=== PATIENT | male | born 1995 | race Caucasian/White ===

== ENCOUNTER 2023-03-06 06:12 | Inpatient (IN) | payer BC, OTHER ==
[~2023-03-06] VITALS: Ht 185.4 cm; Wt 65.4 kg
[2023-03-06 06:55] LABS: HEMATOCRIT 42.9 % (42.0-52.0); HEMOGLOBIN 14.9 g/dl (13.5-17.5); MEAN CORPUSCULAR HEMOGLOBIN 31.5 pg (27.0-33.0); MEAN CORPUSCULAR HGB CONC 34.7 g/dl (32.0-36.5); MEAN CORPUSCULAR VOLUME 90.7 fl (80.0-96.0); PLATELET COUNT, AUTOMATED 248 10^3/uL (150-450); RED BLOOD COUNT 4.73 10^6/uL (4.30-6.10); WHITE BLOOD COUNT 8.1 10^3/uL (4.0-10.0)
[2023-03-06 07:23] LABS: METHADONE URINE NEGATIVE (NEGATIVE); OPIATES URINE NEGATIVE (NEGATIVE); PHENCYCLIDINE URINE NEGATIVE (NEGATIVE)
[2023-03-06 07:24] LABS: BARBITURATES URINE NEGATIVE (NEGATIVE); BENZODIAZEPINES URINE NEGATIVE (NEGATIVE); COCAINE METABOLITE URINE NEGATIVE (NEGATIVE)
[2023-03-06 07:26] LABS: ACETAMINOPHEN LEVEL < 2.0 UG/ML (10.0-20.0)
[2023-03-06 07:27] LABS: ALBUMIN 4.5 G/DL (3.2-5.2); ALKALINE PHOSPHATASE 80 U/L (46-116); ALT/SGPT 20 U/L (7.0-40); AST/SGOT 16 U/L (<34); BILIRUBIN,DIRECT 0.2 MG/DL (<0.4); BILIRUBIN,TOTAL 0.7 MG/DL (0.3-1.2); BLOOD UREA NITROGEN 10 MG/DL (9-23); CALCIUM LEVEL 9.3 MG/DL (8.5-10.1); CARBON DIOXIDE LEVEL 27 MMOL/L (20-31); CHLORIDE LEVEL 105 MMOL/L (98-107); CREATININE FOR GFR 0.73 MG/DL (0.70-1.30); GLOMERULAR FILTRATION RATE > 60.0 (>60); GLUCOSE, FASTING 88 MG/DL (60-100); POTASSIUM SERUM 4.5 MMOL/L (3.5-5.1); SALICYLATE LEVEL < 3.0 MG/DL (<30); SODIUM LEVEL 140 MMOL/L (136-145); TOTAL PROTEIN 7.4 G/DL (5.7-8.2)
[2023-03-06 07:30] LABS: THYROID STIMULATING HORMONE 1.214 uIU/ML (0.55-4.78)
[2023-03-06] MEDS ORDERED: LORazepam 2 MG TAB PO PRN ×2 (07:45→13:10)
[2023-03-06 07:55] LABS: AMPHETAMINES LEVEL URINE POSITIVE (NEGATIVE); CANNABINOIDS URINE POSITIVE (NEGATIVE)
[2023-03-06] MEDS ORDERED: THIAMINE 100 MG TAB PO SCH (09:00)
[2023-03-06] MEDS ORDERED: MULTIVITAMINS/MINERALS THERAP 1 TAB PO SCH (09:00)
[2023-03-06] MEDS ORDERED: FOLIC ACID 1MG TAB PO SCH (09:00)
[2023-03-06] MEDS ORDERED: MOM 30ML SUSPENSION UDC PO PRN (13:10)
[2023-03-06] MEDS ORDERED: diphenhydrAMINE 25MG CAP PO PRN (13:10)
[2023-03-06] MEDS ORDERED: traZODone 50 MG TAB PO PRN (13:10)
[2023-03-06] MEDS ORDERED: OLANZapine ORAL DISINTEGRATING TAB 5MG PO PRN (13:10)
[2023-03-06] MEDS ORDERED: IBUPROFEN 400MG TAB PO PRN (13:10)
[2023-03-06] MEDS ORDERED: MAALOX 30 ML SUSP *UDC PO PRN (13:10)
[2023-03-06] MEDS ORDERED: HOME MED LIST COMPLETE! XX SCH (13:40)
[2023-03-06 15:00] VITALS: BP 126/61
[2023-03-06 15:20] VITALS: BP 126/61
[2023-03-06] MEDS: NICOTINE 21MG/24HR 1 EA TRANSDERMAL TD SCH (17:02)
[2023-03-06] MEDS: THIAMINE 100 MG TAB PO SCH (22:00)
[2023-03-07 06:28] VITALS: BP 128/65
[2023-03-07 07:16] VITALS: BP 128/65
[2023-03-07] MEDS: MULTIVITAMINS/MINERALS THERAP 1 TAB PO SCH (09:03)
[2023-03-07] MEDS: NICOTINE 21MG/24HR 1 EA TRANSDERMAL TD SCH (09:03)
[2023-03-07] MEDS: FOLIC ACID 1MG TAB PO SCH (09:03)
[2023-03-07] MEDS: THIAMINE 100 MG TAB PO SCH ×2 (09:03→22:29)
[2023-03-07 14:34] VITALS: BP 138/83
[2023-03-07 16:35] VITALS: BP 138/83
[2023-03-07 22:30] VITALS: BP 140/88
[2023-03-08 07:02] VITALS: BP 109/58
[2023-03-08 07:03] VITALS: BP 109/58
[2023-03-08] MEDS: THIAMINE 100 MG TAB PO SCH ×2 (09:00→20:51)
[2023-03-08] MEDS: NICOTINE 21MG/24HR 1 EA TRANSDERMAL TD SCH (09:00)
[2023-03-08] MEDS: ESCITALOPRAM OXALATE 5MG TABLET (LEXAPRO) PO SCH (09:00)
[2023-03-08] MEDS: FOLIC ACID 1MG TAB PO SCH (09:00)
[2023-03-08] MEDS: MULTIVITAMINS/MINERALS THERAP 1 TAB PO SCH (09:00)
[2023-03-08 15:11] VITALS: BP 125/69
[2023-03-08 18:48] VITALS: BP 125/68
[2023-03-08 23:12] VITALS: BP 137/77
[2023-03-09 06:03] VITALS: BP 130/58
[2023-03-09] MEDS: ESCITALOPRAM OXALATE 5MG TABLET (LEXAPRO) PO SCH ×2 (09:00→13:19)
[2023-03-09] MEDS: NICOTINE 21MG/24HR 1 EA TRANSDERMAL TD SCH (09:00)
[2023-03-09] MEDS: FOLIC ACID 1MG TAB PO SCH (10:07)
[2023-03-09] MEDS: MULTIVITAMINS/MINERALS THERAP 1 TAB PO SCH (10:07)
[2023-03-09] MEDS ORDERED: NICO21PAT TD (15:35)
[2023-03-09] MEDS ORDERED: LEXA5TAB13 PO (15:35)
[2023-03-09 18:44] VITALS: BP 144/66
[2023-03-09 22:21] VITALS: BP 143/76
[2023-03-10 06:15] VITALS: BP 119/60
[2023-03-10] MEDS: NICOTINE 21MG/24HR 1 EA TRANSDERMAL TD SCH (08:29)
[2023-03-10] MEDS: FOLIC ACID 1MG TAB PO SCH (08:30)
[2023-03-10] MEDS: ESCITALOPRAM OXALATE 5MG TABLET (LEXAPRO) PO SCH (08:30)
[2023-03-10] MEDS: MULTIVITAMINS/MINERALS THERAP 1 TAB PO SCH (08:30)
== END 2023-03-10 12:09 | disposition home or self-care (01) | DRG 754 ==
LOC: M ED 06:12 → M ED INP 13:07 → M PSY 15:29
PROVIDERS: ADMIT Psychiatry & Neurology Psychiatry; ATTEND Psychiatry & Neurology Psychiatry
DX: F32.A Depression, unspecified (principal); F17.200 Nicotine dependence, unspecified, uncomplicated; F10.10 Alcohol abuse, uncomplicated; F43.0 Acute stress reaction; F15.10 Other stimulant abuse, uncomplicated; R45.851 Suicidal ideations; Z63.0 Problems in relationship with spouse or partner; Z63.4 Disappearance and death of family member; Z20.822 Contact with and (suspected) exposure to COVID-19